=== PATIENT | female | born 1955 | race Caucasian/White ===

== ENCOUNTER → 2018-07-18 | Outpatient (CLI) | payer OTHER ==
[2018-07-18 17:46] LABS: Appearance,BF Bloody; Nucleated Cells, Body Fluid 1500 /uL; RBC, Body Fluid 103500 /uL
[2018-07-18 17:47] LABS: Mononuclear WBC,Body Fluid 43 %; Polynuclear WBC,Body Fluid 57 %; Total Cells Counted,Body Fluid 100
== END | disposition home or self-care (01) ==
LOC: LABWHC1 10:37
PROVIDERS: ATTEND Orthopaedic Surgery
DX: E03.9 Hypothyroidism, unspecified (principal); E78.5 Hyperlipidemia, unspecified; M25.561 Pain in right knee; I10 Essential (primary) hypertension; M25.461 Effusion, right knee; Z47.1 Aftercare following joint replacement surgery; Z96.651 Presence of right artificial knee joint
CPT/HCPCS: 87070; 87205; 89050

== ENCOUNTER → 2020-06-10 | Outpatient (CLI) | payer MEDICARE | END | disposition home or self-care (01) | LOC: LABWHC1 14:42 | PROVIDERS: ATTEND Physician Assistant | DX: R05 Cough (principal) | CPT/HCPCS: U0003; C9803 ==

== ENCOUNTER → 2020-09-28 | Outpatient (CLI) | payer MEDICARE ==
[2020-09-28 15:32] LABS: HCT 41.7 % (37.2-46.3); MCH 27.3 pg (27.0-32.0); MCHC 31.2 g/dL (32.0-37.0); MCV 87.4 fL (80.0-97.0); Mean Platelet Volume 9.8 fL (9.5-12.2); Platelet Count 314 X 10*3/uL (140-440); RBC 4.77 X 10*6/uL (4.10-5.20); RDW 14.5 % (11.5-14.5); WBC 7.22 X 10*3/uL (4.50-10.00)
[2020-09-28 18:23] LABS: African American GFR (CKD) 77.2 (60.0-200.0); Anion Gap 7.4 mmol/L (4.00-12.00); BUN/Creat Ratio 11.11 Ratio (12.00-20.00); Calcium 10.6 mg/dL (8.7-10.3); Carbon Dioxide 30.6 mmol/L (21.6-31.8); Non-African American GFR(CKD) 66.6 (60.0-200.0); Potassium 4.1 mmol/L (3.5-5.5)
== END | disposition home or self-care (01) ==
LOC: LABWHC1 09:13
PROVIDERS: ATTEND Family Medicine
DX: Z79.899 Other long term (current) drug therapy (principal); I10 Essential (primary) hypertension; E03.9 Hypothyroidism, unspecified; E66.3 Overweight
CPT/HCPCS: 36415; 80048; 82306; 83036; 84439; 84443; 84450; 84460; 85027

== ENCOUNTER → 2022-09-05 | Outpatient (CLI) | payer MEDICARE ==
[2022-09-05 13:36] VITALS: BP 127/82; PULSE 76; RESP 17; TEMP 98.6
--- NOTE | 2022-09-05 14:28 | P.HPOB ---
History of Present Illness H&P Date: 09/05/22 Chief Complaint: The patient is here for her routine gynecologic exam and ma mmogram. This is a 67-year-old 0-2 with an LMP of 2003. The patient is here to establish with this office. It has been about 5 years since her last pelvic exam. She is without gynecologic complaints and denies any postmenopausal bleeding. Review of Systems The patient's weight has been stable over the last year. She denies respiratory, cardiac, or G.I. problems. Past Medical History Past Medical History: Hyperlipidemia, Hypertension, Thyroid Disorder Additional Past Medical History / Comment(s): Hypothyroidism. 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 History of Any Multi-Drug Resistant Organisms: None Reported Past Surgical History: Joint Replacement, Orthopedic Surgery Additional Past Surgical History / Comment(s): LEFT AND RIGHT KNEE REPLACEMENT , LEFT AND RIGHT CARPAL TUNNEL SURGERY , JAW SURGERY 1984. Colonoscopy 2012. Past Anesthesia/Blood Transfusion Reactions: No Reported Reaction Past Psychological History: Depression Smoking Status: Former smoker Past Alcohol Use History: None Reported Past Drug Use History: None Reported Additional History: She has been since 1983. She is retired. - Past Family History Mother Family Medical History: Cancer Additional Family Medical History / Comment(s): Some type of gynecologic cancer, but she is uncertain as to the type. from Heart disease. Father Additional Family Medical History / Comment(s): Marfan's syndrome. Brother(s) Additional Family Medical History / Comment(s): 2 brothers had Marfan's syndrome and mental impairment. Medications and Allergies Home Medications Medication Instructions Recorded Confirmed Type Atorvastatin [Lipitor] 20 mg PO DAILY 09/05/22 09/05/22 History Calcium Carbonate/Vitamin D3 1 tablet PO DAILY 09/05/22 09/05/22 History [Calcium 500Mg-Vit D3 15 mcg (600 unit)] Cetirizine HCl [Zyrtec] 10 mg PO DAILY PRN 09/05/22 09/05/22 History DULoxetine HCL [Cymbalta] 60 mg PO DAILY 09/05/22 09/05/22 History Ipratropium [place] 0.06%Nasal 1 spray NASAL DAILY 09/05/22 09/05/22 History [Atrovent Nasal 0.06%] Levothyroxine Sodium [Synthroid] 75 mcg PO DAILY 09/05/22 09/05/22 History Metoprolol Succinate (ER) [Toprol 25 mg PO DAILY 09/05/22 09/05/22 History XL] Multivitamin [Multivitamins Adult 1 cap PO DAILY 09/05/22 09/05/22 History Gummies] buPROPion [Wellbutrin] 300 mg PO DAILY 09/05/22 09/05/22 History busPIRone HCL [Buspar] 30 mg PO DAILY 09/05/22 09/05/22 History Allergies Allergy/AdvReac Type Severity Reaction Status Date / Time acetaminophen [From Vicodin] Allergy Vomiting Unverified 09/05/22 13:27 hydrocodone [From Vicodin] Allergy Vomiting Unverified 09/05/22 13:27 Exam Vital Signs Temp Pulse Resp BP Pulse Ox 09/05/22 13:28 98.6 F 76 17 127/82 97 Intake and Output 09/04/22 09/05/22 09/05/22 22:59 06:59 14:59 Other: Weight 102.058 kg Height 5 feet 10 inches, weight 225 pounds, BMI 32.3. This is a well-developed well-nourished white female who is alert and oriented times 3 in no acute distress. HEENT: Within normal limits. NECK: Supple without mass or thyromegaly. CHEST AND LUNGS: Clear to auscultation. HEART: Regular rate and rhythm. BREASTS: Are without mass or discharge. AXILLARY EXAM: Negative for adenopathy. BACK: Negative for CVA tenderness. ABDOMEN: Soft, nontender, without palpable masses. PELVIC EXAM: Normal external genitalia with mild atrophy. Cervix and vagina appear normal is mild atrophy. There is no unusual discharge. There is no evidence of prolapse. The uterus is midposition, nongravid size and nontender. There are no palpable adnexal masses or tenderness. RECTAL EXAM: Rectovaginal exam is negative for mass or tenderness and is negative for occult blood. EXTREMITIES: Nontender. IMPRESSION: 1. 67-year-old menopausal female with normal gynecologic exam. PLAN: 1. Pap smear cotest was performed. 2. Self breast awareness was discussed with the patient. We have also discussed symptoms associated with inflammatory breast cancer. 3. Screening mammogram will be done today. 4. Osteoporosis prevention was discussed. I have stressed the importance of adequate calcium, vitamin D and regular exercise. Recommended amounts of calcium and vitamin D were also discussed. She believes she had a bone density test more than 10 years ago. I recommended repeating this and the order slip was given to the patient for this. 5. She is scheduled for a colonoscopy in September 2022. 6. Weight control was discussed with the patient. She has tried many times losing weight and has lost a fair amount of weight, but has always tended to gain the weight back. I have stressed the importance of good nutrition, regular meals, adequate fiber and regular exercise. 7. She states her mother had some type of gynecologic cancer but she is uncertain as to the type. She will try to get more information. She understands that if it was ovarian cancer, I may recommend yearly pelvic ultrasounds. 8. She was advised to return in one year for her annual well woman exam.
--- NOTE | 2022-09-06 08:37 | MM ---
Reason for Exam: Screening (asymptomatic). Last mammogram was performed 6 year(s) and 6 month(s) ago. Patient History: Menarche at age 13. First Full-Term at age 25. Postmenopausal. Risk Values: Anna 5 year model risk: 1.7%. NCI Lifetime model risk: 5.6%. Prior Study Comparison: 11/17/2010 Bilateral Screening Mammogram, [facility]. 12/23/2012 Bilateral Screening Mammogram, [facility]. 02/17/2016 Bilateral Screening Mammogram, [facility]. Tissue Density: There are scattered fibroglandular densities. Findings: Analyzed By CAD. There is no suspicious group of microcalcifications or new suspicious mass in either breast. Overall Assessment: Negative, BI-RAD 1 Management: Screening Mammogram of both breasts in 1 year. A clinical breast exam by your physician is recommended on an annual basis and results should be correlated with mammographic findings. [facility] will attempt to contact patient to return for supplemental views and ultrasound if indicated. Electronically signed and approved by: Davey Clemente DO
== END ==
LOC: WWCWWP 13:08
PROVIDERS: ATTEND Obstetrics & Gynecology
DX: Z01.419 Encounter for gynecological examination (general) (routine) without abnormal findings (principal); Z12.31 Encounter for screening mammogram for malignant neoplasm of breast; Z88.6 Allergy status to analgesic agent; Z88.5 Allergy status to narcotic agent; E78.5 Hyperlipidemia, unspecified; I10 Essential (primary) hypertension; E07.9 Disorder of thyroid, unspecified; Z79.890 Hormone replacement therapy; Z79.899 Other long term (current) drug therapy
CPT/HCPCS: 77067

== ENCOUNTER → 2023-04-03 | Outpatient (CLI) | payer MEDICARE ==
[2023-04-03 11:43] VITALS: BP 133/82; PULSE 77; RESP 17; TEMP 98.3
--- NOTE | 2023-04-03 12:17 | P.PN ---
Progress Note - Text Progress Note Date: 04/03/23 Chief Complaint: Intermittent vaginal spotting 1-2 months. HPI: This is a 67-year-old 022 with an LNMP of 2003. The patient states she first started noticing some vaginal spotting in February of this year. It has been brownish and occasionally red. She has noticed this intermittently since then. She states most days she does not have any bleeding. She last noticed this about 2 days ago. She denies pelvic pain or cramping. She states the bleeding does not seem to be associated with any type of activity. She has not been sexually active recently. She denies taking any form of HRT or supplements for menopausal symptoms. ROS: She has lost about 3 pounds over the past 7 months. She denies respiratory, cardiac, or GI problems. PE: Blood pressure: 133/82, Height: 5 feet 10 inches, Weight: 222 pounds, Temperature: 98.3, Pulse: 77. Pulse oximeter 97%. This is a well developed, well nourished, white female who is alert and orientedx3, in no acute distress. Abdomen: Soft, nontender without palpable masses Pelvic exam: Normal external genitalia with mild atrophy. Cervix and vagina reveal normal findings with mild atrophy. There is no unusual discharge. No blood is seen in the vagina. There is no cervical motion tenderness. The uterus is mid positioned, nongravid size, and nontender. There are no palpable adnexal masses or tenderness. Impression: 1. 67-year-old menopausal female with a 2 month history of intermittent light vaginal spotting (post menopausal bleeding) with no significant physical findings on exam today. 2. Her Pap smear done on 09/05/2022 showed ASCUS with negative high-risk HPV testing. Plan: 1. The patient will be scheduled for a pelvic ultrasound. The order slip was given to the patient for this. If there is endometrial thickening or if the bleeding persists, we will plan on doing some form of endometrial sampling. 2. We have spent time discussing the postmenopausal bleeding. We have discussed different possibilities and the method of working up the postmenopausal bleeding. 3. She will try to get more information about her mother's gynecologic cancer including the type of cancer. Time spent with the patient: 20 minutes
== END ==
LOC: WWCWWP 11:13
PROVIDERS: ATTEND Obstetrics & Gynecology
DX: Z01.419 Encounter for gynecological examination (general) (routine) without abnormal findings (principal); N95.0 Postmenopausal bleeding; Z11.51 Encounter for screening for human papillomavirus (HPV); Z88.5 Allergy status to narcotic agent; Z88.6 Allergy status to analgesic agent

== ENCOUNTER → 2023-04-18 | Outpatient (CLI) | payer MEDICARE ==
--- NOTE | 2023-04-18 13:26 | US ---
EXAMINATION TYPE: US pelvis complete transvag DATE OF EXAM: 04/18/2023 COMPARISON: NONE CLINICAL INDICATION: Female, 67 years old with history of N95.0 POSTMENOPAUSAL BLEEDING; Postmenopaus al bleeding on and off x 3 months TECHNIQUE: Transvaginal (TV) and Transabdominal (TA) . EXAM MEASUREMENTS: Uterus: 10.4 x 5.0 x 5.8 cm Endometrial Stripe: 1.3 cm Left Ovary: 6.7 x 4.1 x 6.1 cm 1. Uterus: Solid nodule seen SANTANA measuring 4.0 x 3.5 x 3.6 cm. 2. Endometrium: Thickened anechoic area seen inferior 1.1 x .7 x .9 cm. 3. Right Ovary: Obscured by overlying bowel gas 4. Left Ovary: Anechoic area 6.2 x 3.9 x 4.7 cm. Spectral, color and waveform doppler imaging shows good arterial and venous flow within the ovaries ; there is no evidence for ovarian torsion. 5. Bilateral Adnexa: wnl 6. Posterior cul-de-sac: wnl Urinary bladder is sonolucent. Posterior wall is normal. IMPRESSION: 1. Left ovarian cyst. 2. Fundal endometrium appears somewhat prominent. There is a small collection adjacent. 3. Lower uterine segment fibroid
--- NOTE | 2023-04-20 10:37 | P.PN ---
Progress Note - Text Progress Note Date: 04/20/23 Pelvic ultrasound done on 04/18/23 showed a 6.2 cm left ovarian cyst and a thickened endometrium measuring 1.3cm. The patient was notified by phone on 04/20/23. She states she continues to have some light vaginal bleeding with cramps. Impression: Intermittent light postmenopausal bleeding with thickened endometrium and 6.2cm left ovarian cyst. Plan: She will be referred to Dr. Edward for endometrial sampling and indicated surgery. We have discussed the possible need for oophorectomy and possible hysterectomy.
== END | disposition home or self-care (01) ==
LOC: RADUSWWP 12:12
PROVIDERS: ATTEND Obstetrics & Gynecology
DX: D25.9 Leiomyoma of uterus, unspecified (principal); N95.0 Postmenopausal bleeding; N83.202 Unspecified ovarian cyst, left side
CPT/HCPCS: 76830; 76856

== ENCOUNTER → 2023-05-28 | Outpatient (CLI) | payer MEDICARE ==
[2023-05-29 02:31] LABS: Basophils # (A) 0.05 X 10*3/uL (0.00-0.10); Basophils % (A) 0.6 %; Eosinophils # (A) 0.13 X 10*3/uL (0.04-0.35); Eosinophils % (A) 1.7 %; HCT 42.9 % (37.2-46.3); HGB 13.8 d/dL (12.0-15.0); Lymphocytes # (A) 2.59 X 10*3/uL (0.90-5.00); Lymphocytes % (A) 33.3 %; MCH 27.9 pg (27.0-32.0); MCHC 32.2 d/dL (32.0-37.0); MCV 86.7 FL (80.0-97.0); Mean Platelet Volume 10.4 FL (9.5-12.2); Monocytes # (A) 0.75 X 10*3/uL (0.20-1.00); Monocytes % (A) 9.7 %; NRBC Per 100 WBC 0 X 10*3/uL (0.00-0.01); Neutrophils # (A) 4.18 X 10*3/uL (1.80-7.70); Neutrophils % (A) 53.8 %; Platelet Count 337 X 10*3/uL (140-440); RBC 4.95 X 10*6/uL (4.10-5.20); RDW 14.7 % (11.5-14.5); WBC 7.77 X 10*3/uL (4.50-10.00)
[2023-05-29 02:56] LABS: Blood Urea Nitrogen 13.1 mg/dL (9.0-27.0)
[2023-05-29 02:57] LABS: Carbon Dioxide 29.9 mmol/L (21.6-31.8); Chloride 101 mmol/L (96-109); Magnesium 2.1 mg/dL (1.5-2.4); Potassium 3.8 mmol/L (3.5-5.5); Sodium 143 mmol/L (135-145)
== END | disposition home or self-care (01) ==
LOC: LABPAT 14:07
PROVIDERS: ATTEND Obstetrics & Gynecology Obstetrics
DX: Z01.812 Encounter for preprocedural laboratory examination (principal); N95.0 Postmenopausal bleeding; N83.209 Unspecified ovarian cyst, unspecified side; R10.2 Pelvic and perineal pain; R94.31 Abnormal electrocardiogram [ECG] [EKG]
CPT/HCPCS: 80051; 82565; 83735; 84520; 85025; 86850; 86900; 86901; 87086; 93005

== ENCOUNTER 2023-06-07 06:43 | Day surgery (SDC) | payer MEDICARE ==
[~2023-06-07 06:43] MED LIST: DEXAMETHASONE SOD PHOSPHATE 4 MG/ML 1 ML VIAL IV ONE; HYDROmorphone 0.5 MG/0.5 ML SYRINGE IVP PRN; LIDOCAINE 1% (10MG/ML) FOR IV START INTRADERMA PRN; MIDAZOLAM 2 MG/2 ML VIAL IV PRN; ONDANSETRON 4 MG/2 ML VIAL IVP ONE
[2023-06-07] MEDS: LACTATED RINGERS 1,000 ML IV SCH ×2 (07:44→11:57)
[2023-06-07] MEDS ORDERED: MIDAZOLAM 2 MG/2 ML VIAL IVP ONE (08:16)
[2023-06-07] MEDS ORDERED: fentaNYL (PF) 50 MCG/ML 2 ML AMP IVP ONE (08:16)
[2023-06-07] MEDS ORDERED: ROPIVACAINE 5 MG/ML 30 ML VIAL ONE (08:31)
[2023-06-07] MEDS ORDERED: LIDOCAINE 1% INJ 10MG/ML (20 ML MDV) ONE (08:31)
[2023-06-07] MEDS ORDERED: GLYCOPYRROLATE 0.2 MG/ML 2 ML VIAL ONE (08:31)
[2023-06-07] MEDS ORDERED: ROCURONIUM 10 MG/ML (5 ML VIAL) IV ONE (08:31)
[2023-06-07] MEDS ORDERED: SODIUM CHLORIDE 0.9% (PF) 10 ML VIAL ONE (08:31)
[2023-06-07] MEDS ORDERED: NEOSTIGMINE 1 MG/ML 10 ML VIAL ONE (08:31)
[2023-06-07] MEDS ORDERED: fentaNYL (PF) 50 MCG/ML 2 ML AMP ONE (08:31)
[2023-06-07] MEDS ORDERED: ACETAMINOPHEN IV (For NPO) 1,000 MG/100 ML VIAL ONE (08:31)
[2023-06-07] MEDS ORDERED: PROPOFOL 10 MG/ML 20 ML VIAL IV ONE (08:31)
--- NOTE | 2023-06-07 09:02 | P.ANPRN ---
Procedure Note - Anesthesia - Nerve Block Performed Bilateral Erector Spinae Single Time Out Performed: Yes Date of Procedure: 06/07/23 Procedure Start Time: 08:15 Procedure Stop Time: 08:30 Location of Patient: PreOp Indication: Acute Post-Operative Pain, Requested by Surgeon Sedation Type: Sedate with meaningful contact maintained Preparation: Sterile Prep Position: Sitting Catheter: None Needle Types: Pajunk Needle Gauge: 21 Ultrasound used to visualize needle placement: Yes Ultrasound used to observe medication spread: Yes Injectate: 0.5% Ropivacaine (see comment for volume) (10 ml+NS10ml in each side) Blood Aspirated: No Pain Paresthesia on Injection Noted: No Resistance on Injection: Normal Image Stored and Saved: Yes Events: Uneventful and Well Tolerated
[2023-06-07] MEDS ORDERED: BUPIVACAINE (PF) 0.25% 30 ML VIAL SQ ONE ×2 (09:23→10:10)
[2023-06-07] MEDS ORDERED: Acetaminophen-Codeine 300-30mg TAB PO PRN ×2 (10:46)
[2023-06-07] MEDS ORDERED: SIMETHICONE 80 MG CHEWABLE PO PRN (10:46)
[2023-06-07] MEDS ORDERED: ACETAMINOPHEN IV (For NPO) 1,000 MG in EMPTY BAG 1 BAG IVPB ONE (10:46)
--- NOTE | 2023-06-07 10:55 | P.OP ---
Date of Procedure: 06/07/23 Preoperative Diagnosis: Postmenopausal bleeding, ovarian cyst, pelvic pain Postoperative Diagnosis: Same plus anterior uterine fibroid Procedure(s) Performed: Robotic-assisted vaginal hysterectomy, bilateral salpingoophorectomy, diagnostic cystoscopy Anesthesia: POLLOA Surgeon: Navya Hart Ship Painter Helper #1: Tiago Edward Estimated Blood Loss (ml): 5 IV fluids (ml): 600 Urine output (ml): 200 Pathology: other (Uterus cervix bilateral fallopian tubes and ovaries) Condition: stable Disposition: PACU Indications for Procedure: Postmenopausal bleeding, enlarged left ovary with cystic change, significant pe lvic discomfort on the left lower pelvis, patient desires definitive treatment with hysterectomy. Operative Findings: Enlarged uterus with anterior uterine fibroid, 3 cm approximately, simple appearing left ovarian cyst. Grossly normal ovaries. Description of Procedure: Patient was taken back to the operating suite where general anesthesia was o btained without difficulty by the anesthesia department. She was prepped and draped in normal sterile fashion in the dorsal lithotomy position. A Culp catheter was then placed under sterile technique. A weighted speculum was placed in the posterior vaginal vault intralipids the cervix was visualized and grasped with a single-tooth tenaculum. The endocervical canal was then serially dilated. Be care uterine made blade was advanced into the uterus as a means to manipulate the uterus throughout the procedure. The balloon was insufflated with air and all instruments were removed from the patient's vaginal vault. Attention then turned to the abdomen where proximal 0.2 finger breaths above the umbilicus a small skin incision is made. Through this incision the Veress needle is placed. Once the Veress needle was deemed to be in the proper position with a drop of CO2 pressure CO2 insufflation was allowed to occur. 3 L of gas or used to obtain pneumoperitoneum. At this time an 8 mm trocar and sleeve the laparoscope in place was placed through the skin incision and toward the pneumoperitoneum. The above-noted findings were visualized. Additional port sites are then placed at 10 cm lateral and 37 m inferior to midline port these are 8 mm ports and placed under direct visualization. In the right upper quadrant a 12 mm skin incision is made and trochars placed under direct visu alization. At this time the da Rose Marie robot was docked in the usual fashion. The operative arms are now placed in the right operative arm the monopolar scissors is placed, and the left operative arm the bipolar forceps is placed. Attention was then turned to the patient's left infundibulopelvic ligament which was visualized coagulated distally and proximally and divided this continued through the broad and toward the round which was coagulated and transected. The bladder flap from the left was then created using sharp and blunt dissection. The ascending branch the visualized coagulated and transected. Attention was then turned to the patient's right infundibulopelvic ligament which was coagulated transected hemostasis was noted. This continued through the broad and toward the round which was quite distally and proximally and divided. The round ligament was visualized coagulated and transected. The bladder flap was then created using sharp and blunt dissection over the anterior fibroid. Once the bladder was noted to be free of the operating after a sweep with a Ray-Avelina the ascending branch the uterine artery was visualized coagulated. At this time the only remaining attachment was a vaginal attachment therefore colpotomy incision was made and circumference of fashion. The uterus bilateral fallopian tubes and ovaries were removed through the vaginal opening. The pelvis then copiously irrigated. The vaginal cuff was then closed with 0 Vicryl in a [id number] fashion. For sutures were used to obtain hemostasis. The pelvis was then irrigated again hemostasis was noted in all instrument were removed from the patient's abdomen. The da Rose Marie was undocked. Attention then turned the patient's Culp catheter which was noted be spilling clear yellow urine in the tubing. A cystoscope was performed. The cystoscope was placed through the urethra and toward the bladder bladder bubbles appreciated complete survey revealed an intact bladder mucosa. Both ureteral orifices noted to be spilling clear yellow urine. This cystoscope was removed and the Culp catheter was replaced. The skin incisions were closed with 4-0 Vicryl subcuticular fashion. Steri-Strips and sterile dressings were applied. All counts were noted correct 2 at the end of the procedure. Patient tolerated procedure well was taken the recovery room awake in stable condition.
[2023-06-07] MEDS ORDERED: KETOROLAC 15 MG/ML 1 ML VIAL IVP ONE (11:31)
[2023-06-07 13:49] VITALS: RESP 16
[2023-06-07] MEDS: busPIRone HCl 10 MG TAB PO SCH ×2 (16:26→19:59)
[2023-06-07] MEDS: IBUPROFEN 600 MG TAB PO PRN (18:21)
[2023-06-07] MEDS: SENNOSIDES-DOCUSATE SODIUM 1 EACH TAB PO SCH (19:59)
[2023-06-07] MEDS: BENZOCAINE/MENTHOL LOZENG 1 EACH LOZENGE MUCOUS MEM PRN (20:01)
[2023-06-07] MEDS ORDERED: MELATONIN 5 MG TABLET PO SCH (22:15)
[2023-06-08] MEDS: BENZOCAINE/MENTHOL LOZENG 1 EACH LOZENGE MUCOUS MEM PRN (05:50)
[2023-06-08 06:43] LABS: Basophils % (A) 0 %; Eosinophils % (A) 0 %; HCT 34.2 % (34.0-46.0); HGB 11.6 gm/dL (11.4-16.0); Lymphocytes % (A) 14 %; MCH 28.3 pg (25.0-35.0); MCV 83.3 fL (80.0-100.0); Monocytes # (A) 0.8 k/uL (0-1.0); Monocytes % (A) 6 %; Neutrophils # (A) 11.4 k/uL (1.3-7.7); Neutrophils % (A) 79 %; Platelet Count 269 k/uL (150-450); RBC 4.11 m/uL (3.80-5.40); RDW 14.2 % (11.5-15.5); WBC 14.5 k/uL (3.8-10.6)
[2023-06-08] MEDS: busPIRone HCl 10 MG TAB PO SCH (08:07)
[2023-06-08] MEDS: SENNOSIDES-DOCUSATE SODIUM 1 EACH TAB PO SCH (08:07)
[2023-06-08] MEDS: IBUPROFEN 600 MG TAB PO PRN (08:09)
[2023-06-08] MEDS ORDERED: DULoxetine HCL 60 MG CAPSULE.DR PO SCH (09:00)
[2023-06-08] MEDS ORDERED: buPROPion XL 300 MG TAB.ER.24H PO SCH (09:00)
[2023-06-08 09:06] VITALS: BP 129/66; PULSE 86; TEMP 98.4
--- NOTE | 2023-06-08 09:57 | P.DS ---
Providers Date of admission: 06/07/2023 Expected date of discharge: 06/08/23 Attending physician: Navya Hart Primary care physician: Trae Khan - Discharge Diagnosis(es) (1) PMB (postmenopausal bleeding) Current Visit: Yes Status: Acute (2) Ovarian cyst Current Visit: Yes Status: Acute (3) Pelvic pain Current Visit: Yes Status: Acute (4) Uterine fibroid Current Visit: Yes Status: Acute Hospital Course: This is a 59-year-old female that presented to the hospital yesterday for scheduled robotic-assisted vaginal hysterotomy with bilateral salpingo- oophorectomy, diagnostic cystoscopy. Patient was seen in the office with complaints of pelvic pain, ovarian cyst was diagnosed on ultrasound. Patient did have an episode of postmenopausal bleeding endometrial biopsy was completed the office and found to be normal. Patient was counseled on findings of ultrasound and endometrial biopsy and she elected definitive treatment. For full details on the patient please see the dictated history and physical Patient was counseled on hysterectomy. Patient was taken back to the operating room where robotic-assisted vaginal hysterectomy was completed without difficulty. For full details on the procedure please see the dictated operative report. Patient's postoperative course has been uneventful. On this postoperative day #1 she is ambulating and voiding without difficulty. She is tolerating a regular diet without nausea or vomiting. She states her pain is well- controlled. She wishes discharge home. Patient Condition at Discharge: Good Plan - Discharge Summary Discharge Rx Participant: Yes New Discharge Prescriptions: No Action busPIRone HCL [Buspar] 30 mg PO TID Multivitamin [Multivitamins Adult Gummies] 1 cap PO DAILY Metoprolol Succinate (ER) [Toprol XL] 25 mg PO QAM Levothyroxine Sodium [Synthroid] 75 mcg PO QAM Atorvastatin [Lipitor] 20 mg PO HS buPROPion [Wellbutrin] 300 mg PO QAM Ipratropium [place] 0.06%Nasal [Atrovent Nasal 0.06%] 1 spray NASAL DAILY DULoxetine HCL [Cymbalta] 60 mg PO QAM Cetirizine HCl [Zyrtec] 10 mg PO HS Calcium Carbonate [Calcium] 600 mg PO DAILY Discharge Medication List Atorvastatin [Lipitor] 20 mg PO HS 09/05/22 [History] Cetirizine HCl [Zyrtec] 10 mg PO HS 09/05/22 [History] DULoxetine HCL [Cymbalta] 60 mg PO QAM 09/05/22 [History] Ipratropium [place] 0.06%Nasal [Atrovent Nasal 0.06%] 1 spray NASAL DAILY 09/05/22 [History] Levothyroxine Sodium [Synthroid] 75 mcg PO QAM 09/05/22 [History] Metoprolol Succinate (ER) [Toprol XL] 25 mg PO QAM 09/05/22 [History] Multivitamin [Multivitamins Adult Gummies] 1 cap PO DAILY 09/05/22 [History] buPROPion [Wellbutrin] 300 mg PO QAM 09/05/22 [History] busPIRone HCL [Buspar] 30 mg PO TID 09/05/22 [History] Calcium Carbonate [Calcium] 600 mg PO DAILY 09/29/22 [History] Follow up Appointment(s)/Referral(s): Navya Hart DO [Doctor of Osteopathic Medicine] - 2 Weeks Patient Instructions/Handouts: Hysterectomy (GEN), Hysterectomy (DC) Activity/Diet/Wound Care/Special Instructions: No tub baths or intercourse until 6 weeks postoperatively. [id number] ibuprofen and Tylenol as needed for pain. Motrin 600 mg every 6 hours as needed. Patient can expect spotting to late bleeding postoperatively. Patient is to call the office for routine postoperative check in 2 weeks, should she have any concerns prior disappointed she is urged to call the office. Discharge Disposition: HOME SELF-CARE
[2023-06-08] MEDS ORDERED: ACETAMINOPHEN TAB 325 MG TAB PO PRN (10:48)
== END 2023-06-08 10:10 | disposition home or self-care (01) ==
LOC: OR 06:43 → 4FBP 10:39 → OR 06-08 10:10
PROVIDERS: ATTEND Obstetrics & Gynecology Obstetrics
DX: N84.0 Polyp of corpus uteri (principal); N95.0 Postmenopausal bleeding; D25.1 Intramural leiomyoma of uterus; N88.8 Other specified noninflammatory disorders of cervix uteri; N72 Inflammatory disease of cervix uteri; N80.03 Adenomyosis of the uterus; N83.8 Other noninflammatory disorders of ovary, fallopian tube and broad ligament; F32.A Depression, unspecified; F41.9 Anxiety disorder, unspecified; M19.90 Unspecified osteoarthritis, unspecified site; E78.5 Hyperlipidemia, unspecified; I10 Essential (primary) hypertension; E03.9 Hypothyroidism, unspecified; F10.90 Alcohol use, unspecified, uncomplicated; Z96.659 Presence of unspecified artificial knee joint; Z98.890 Other specified postprocedural states; Z79.890 Hormone replacement therapy; Z79.83 Long term (current) use of bisphosphonates; Z79.891 Long term (current) use of opiate analgesic; Z79.899 Other long term (current) drug therapy; Z87.891 Personal history of nicotine dependence; Z88.5 Allergy status to narcotic agent
CPT/HCPCS: 52281; 58552; S2900; 64999; 85025; 88307

== ENCOUNTER → 2024-05-09 | Outpatient (CLI) | payer MEDICARE ==
--- NOTE | 2024-05-12 14:37 | MM ---
Reason for Exam: Screening (asymptomatic). Last mammogram was performed 1 year(s) and 9 month(s) ago. Patient History: Menarche at age 13. First Full-Term at age 25. Postmenopausal. Risk Values: Anna 5 year model risk: 1.7%. NCI Lifetime model risk: 5.4%. Prior Study Comparison: 12/23/2012 Bilateral Screening Mammogram, [facility]. 02/17/2016 Bilateral Screening Mammogram, [facility]. 09/05/2022 Bilateral MG screening mammo w CAD, [facility]. Tissue Density: The breasts are heterogeneously dense, which may obscure small masses. Findings: Analyzed By CAD. There is no suspicious group of microcalcifications or new suspicious mass in either breast. Overall Assessment: Negative, BI-RAD 1 Management: Screening Mammogram of both breasts in 1 year. . Patient should continue monthly self-breast exams. A clinical breast exam by your physician is recommended on an annual basis. This exam should not preclude additional follow-up of suspicious palpable abnormalities. Note on Anna scores and lifetime risk: 1. A Anna score greater than 3% is considered moderate risk. If this is the case, consider specialist referral to assess eligibility for a risk reducing agent. 2. If overall lifetime risk for the development of breast cancer is 20% or higher, the patient may qualify for future screening with alternating mammogram and breast MRI. [facility], , 05/12/2024 2:34 PM. Electronically signed and approved by: Ezra Becker M.D. Radiologis
== END | disposition home or self-care (01) ==
LOC: RADMAMWWP 14:20
PROVIDERS: ATTEND Family Medicine
DX: Z12.31 Encounter for screening mammogram for malignant neoplasm of breast
CPT/HCPCS: 77063; 77067

== ENCOUNTER → 2024-07-11 | Outpatient (CLI) | payer MEDICARE ==
[2024-07-11 18:39] LABS: ALT 31 U/L (8-44); AST 18 U/L (13-35); Albumin 4.4 g/dL (3.8-4.9); Albumin/Globulin Ratio 1.76 Ratio (1.60-3.17); Alkaline Phosphatase 115 U/L (41-126); BUN/Creat Ratio 19.67 Ratio (12.00-20.00); Blood Urea Nitrogen 17.7 mg/dL (9.0-27.0); Calcium 9.5 mg/dL (8.7-10.3); Carbon Dioxide 26.9 mmol/L (21.6-31.8); Chloride 101 mmol/L (96-109); Globulin 2.5 g/dL (1.6-3.3); Glucose 124 mg/dL (70-110); Potassium 3.8 mmol/L (3.5-5.5); Sodium 139 mmol/L (135-145); Total Bilirubin 0.2 mg/dL (0.3-1.2); Total Protein 6.9 g/dL (6.2-8.2)
[2024-07-11 20:37] LABS: Basophils # (A) 0.05 X 10*3/uL (0.00-0.10); Basophils % (A) 0.3 %; Eosinophils # (A) 0.01 X 10*3/uL (0.04-0.35); Eosinophils % (A) 0.1 %; HCT 40.2 % (37.2-46.3); HGB 12.9 g/dL (12.0-15.0); MCH 27.2 pg (27.0-32.0); MCHC 32.1 g/dL (32.0-37.0); MCV 84.8 FL (80.0-97.0); Mean Platelet Volume 11.1 FL (9.5-12.2); Monocytes # (A) 0.84 X 10*3/uL (0.20-1.00); Monocytes % (A) 5.6 %; NRBC Per 100 WBC 0 X 10*3/uL (0.00-0.01); Neutrophils # (A) 12.06 X 10*3/uL (1.80-7.70); Neutrophils % (A) 80.5 %; Platelet Count 403 X 10*3/uL (140-440); RBC 4.74 X 10*6/uL (4.10-5.20); RDW 14.5 % (11.5-14.5); WBC 14.99 X 10*3/uL (4.50-10.00)
== END | disposition home or self-care (01) ==
LOC: LABWHC1 15:00
PROVIDERS: ATTEND Internal Medicine Gastroenterology
DX: R74.01 Elevation of levels of liver transaminase levels (principal)
CPT/HCPCS: 36415; 80053; 85025